=== PATIENT | male | born 1975 | race Hispanic/Latino ===

== ENCOUNTER 2018-07-27 20:42 | Emergency (ER) | payer BC ==
[~2018-07-27] VITALS: Ht 167.6 cm; Wt 125.0 kg
[2018-07-27] MEDS ORDERED: TORADOL PO (21:16)
[2018-07-27] MEDS ORDERED: METRONIDAZOL500 MG PO (21:16)
[2018-07-27] MEDS ORDERED: CIPROFLOXACN500 MG PO (21:16)
[2018-07-27 21:37] VITALS: BP 164/101
== END 2018-07-27 21:38 | disposition home or self-care (01) | DRG 395 ==
LOC: ED 20:42
DX: K62.89 Other specified diseases of anus and rectum (principal)

== ENCOUNTER 2024-02-07 07:12 | Day surgery (SDC) | payer BC ==
[~2024-02-07] VITALS: Ht 167.6 cm; Wt 108.9 kg
[~2024-02-07 07:12] MED LIST: CIPROFLOXACN500 MG PO; COZAAR100 MG PO; CRESTOR20 MG PO; GLIPIZIDE5 M2 PO; METFORMIN HCL1000 MG PO; METRONIDAZOL500 MG PO; OMEPRAZOLE DR40 MG; OZEMPIC2 MG; TORADOL PO
[2024-02-07] MEDS ORDERED: SODIUM CHLORIDE 0.9% 1,000 ML IV ONE (07:15)
[2024-02-07] MEDS ORDERED: FAMOTIDINE 10MG/ML 2ML SDV IV ONE (07:15)
[2024-02-07 09:30] VITALS: BP 141/93
[2024-02-07] MEDS ORDERED: GLYCOPYRROLATE 0.2 MG/ML IV ONE (13:39)
[2024-02-07] MEDS ORDERED: LIDOCAINE HCL 2% 2ML SDV IV ONE (13:39)
[2024-02-07] MEDS ORDERED: PROPOFOL 200 MG/20 ML VIAL IV ONE (13:39)
== END 2024-02-07 09:35 | disposition home or self-care (01) | DRG 951 ==
LOC: ENDO 07:12 → ORM 08:45 → ENDO 09:35
PROVIDERS: ATTEND Surgery
PROC: 0DBM8ZX Excision of Descending Colon, Via Natural or Artificial Opening Endoscopic, Diagnostic (ICD-10-PCS; principal; 2024-02-07)
PROC: 0DBL8ZX Excision of Transverse Colon, Via Natural or Artificial Opening Endoscopic, Diagnostic (ICD-10-PCS; 2024-02-07)
DX: Z12.11 Encounter for screening for malignant neoplasm of colon (principal); D12.4 Benign neoplasm of descending colon; D12.3 Benign neoplasm of transverse colon; K57.30 Diverticulosis of large intestine without perforation or abscess without bleeding; K64.8 Other hemorrhoids; I10 Essential (primary) hypertension; E11.9 Type 2 diabetes mellitus without complications; K21.9 Gastro-esophageal reflux disease without esophagitis; Z80.0 Family history of malignant neoplasm of digestive organs
CPT/HCPCS: J1596